=== PATIENT | female | born 1945 | race Caucasian/White ===

== ENCOUNTER 2017-08-08 15:10 | Emergency (ER) | payer MEDICARE ==
[2017-08-08 17:08] VITALS: BP 00/00
--- NOTE | 2017-08-22 07:27 | ED ---
Javed Gan Simon, scribed for Inder Arevalo MD on 08/08/17 at 1549 . Complex/Multi-Sys Presentation - HPI Summary HPI Summary: This patient is a 71 year old F presenting to [facility] with a chief complaint of shakiness and feeling cold since this AM. Her daughter in law was worried because of shaking since husbands injury and fathers illness and admission to ICU. Pt drank water at noon but feels dehydrated. Pt declined food, wants hot tea. pt amenable to being at husbands side. - History Of Current Complaint Chief Complaint: EDGeneral Hx Obtained From: Patient Onset/Duration: Sudden Onset, Lasting Hours Timing: Constant Severity Currently: Moderate Severity Initially: Moderate Aggravating Factor(s): Recent stress Alleviating Factor(s): nothing Associated Signs And Symptoms: Positive: Other - Shaky, Cold - Allergies/Home Medications Allergies/Adverse Reactions: Allergies Allergy/AdvReac Type Severity Reaction Status Date / Time No Known Allergies Allergy Verified 08/08/17 15:11 PMH/Surg Hx/FS Hx/Imm Hx History: Reports: Other Problems/Disorders - UTI Sensory History: Denies: Hx Legally Blind, Hx Deafness Opthamlomology History: Denies: Hx Legally Blind EENT History: Denies: Hx Deafness - Cancer History Hx Chemotherapy: No Hx Radiation Therapy: No Infectious Disease History: No Infectious Disease History: Denies: Traveled Outside the [place] in Last 30 Days - Family History Known Family History: Positive: Other - Metastatic Cancer Review of Systems Positive: Chills, Other - Dehydrated. Negative: Fever Negative: Erythema Negative: Sore Throat Negative: Chest Pain Negative: Shortness Of Breath, Cough Negative: Abdominal Pain, Vomiting, Nausea Negative: dysuria, hematuria Negative: Myalgia, Edema Negative: Rash Neurological: Other - NEGATIVE: Dizziness Positive: Anxious All Other Systems Reviewed And Are Negative: Yes Physical Exam - Summary Physical Exam Summary: Constitutional: Well-developed, Well-nourished, Alert. (-) Distressed Skin: Warm, Dry HENT: Normocephalic; Atraumatic Eyes: Conjunctiva normal Neck: Musculoskeletal ROM normal neck. (-) JVD, (-) Stridor, (-) Tracheal deviation Cardio: Rhythm regular, rate normal, Heart sounds normal; Intact distal pulses; The pedal pulses are 2+ and symmetric. Radial pulses are 2+ and symmetric. (-) Murmur Pulmonary/Chest wall: Effort normal. (-) Respiratory distress, (-) Wheezes, (-) Rales Abd: Soft, (-), epigastric tenderness, (-) Distension, (-) Guarding, (-) Rebound Musculoskeletal: (-) Edema Lymph: (-) Cervical adenopathy Neuro: Alert, Oriented x3 Psych: Mildly anxious appearing Triage Information Reviewed: Yes Vital Signs On Initial Exam: Initial Vitals Temp Pulse Resp BP Pulse Ox 98.3 F 74 20 140/64 100 08/08/17 15:11 08/08/17 15:11 08/08/17 15:11 08/08/17 15:11 08/08/17 15:11 Vital Signs Reviewed: Yes Diagnostics - Vital Signs Vital Signs Temp Pulse Resp BP Pulse Ox 08/08/17 15:11 98.3 F 74 20 140/64 100 - Laboratory Lab Statement: Any lab studies that have been ordered have been reviewed, and results considered in the medical decision making process. Re-Evaluation - Re-Evaluation First Eval Re-Evaluation Time: 16:35 Comment: Pt declined any meds as she wants to be with her with unclouded judgement, appears to be in good judgement, is no risk of self-harm. Complex Multi-Symp Course/Dx Course Of Treatment: This patient is a 71 year old F presenting to [facility] [place] with a chief complaint of shakiness and feeling cold since this AM. Her daughter in law was worried because of shaking since husbands injury and fathers illness and admission to ICU. Pt drank water at noon but feels dehydrated. Pt will be D /C'd home with Dx of stress response - Diagnoses Provider Diagnoses: Stress response Discharge - Sign-Out/Discharge Documenting (check all that apply): Discharge/Admit/Transfer - discharge - Discharge Plan Condition: Stable Disposition: HOME Patient Education Materials: Stress (ED) Referrals: Tasia Costello MD [Primary Care Provider] - 2 Days Additional Instructions: RETURN TO EMERGENCY DEPARTMENT FOR ANY CHANGING OR WORSENING SYMPTOMS. - Billing Disposition and Condition Condition: STABLE Disposition: Home The documentation as recorded by the Javed szymanski Simon accurately reflects the service I personally performed and the decisions made by Irina wright Jerry, MD.
== END 2017-08-08 17:01 | disposition home or self-care (01) ==
LOC: ED 15:10
DX: F43.9 Reaction to severe stress, unspecified (principal)
CPT/HCPCS: 99282